=== PATIENT | female | born 1985 | race African-American/Black ===

== ENCOUNTER 2019-09-16 11:04 | Emergency (ER) | payer MEDICAID ==
[~2019-09-16] VITALS: Ht 167.6 cm; Wt 84.0 kg
[2019-09-16] MEDS ORDERED: IBUPROFEN 800MG TABLET PO ONE (12:15)
[2019-09-16] MEDS ORDERED: CEPHALEXIN 250MG CAPSULE PO ONE (13:30)
[2019-09-16 14:16] VITALS: BP 145/89
== END 2019-09-16 14:18 | disposition home or self-care (01) ==
LOC: ER 11:04
DX: N64.4 Mastodynia (principal); I10 Essential (primary) hypertension
CPT/HCPCS: 76641; 81025; 99284

== ENCOUNTER 2020-11-25 15:15 | Emergency (ER) | payer MEDICAID ==
[~2020-11-25] VITALS: Ht 167.6 cm; Wt 96.0 kg
[2020-11-25] MEDS ORDERED: CEPH500T MT (17:56)
[2020-11-25] MEDS ORDERED: SULF1TAB48 MT (17:56)
[2020-11-25] MEDS ORDERED: CEPHALEXIN 250MG CAPSULE PO ONE (18:00)
[2020-11-25] MEDS ORDERED: SULFAMETHOXAZOLE/TRIMETHOPRIM 800/160MG TABLET PO ONE (18:00)
[2020-11-25] MEDS ORDERED: IBUPROFEN 800MG TABLET PO ONE (18:30)
[2020-11-25 18:31] VITALS: BP 125/88
== END 2020-11-25 18:35 | disposition home or self-care (01) ==
LOC: ER 15:15
DX: N61.0 Mastitis without abscess (principal); I10 Essential (primary) hypertension
CPT/HCPCS: 76642; 93005; 99284